=== PATIENT | female | born 1990 | race Caucasian/White ===

== ENCOUNTER 2017-07-26 04:20 | Emergency (ER) | payer BC ==
[~2017-07-26] VITALS: Ht 160 cm; Wt 50.8 kg
[2017-07-26] MEDS ORDERED: Lidocaine 2% Visc 15ml soln ORAL STA (04:42)
[2017-07-26] MEDS ORDERED: Ketorolac 60mg Inj IM ONE (04:45)
--- NOTE | 2017-07-26 04:47 | Emergency Room Report ---
History of Present Illness General Chief Complaint: Skin Rash/Abscess Source: Patient Present Illness HPI Patient presents with painful tongue. There is a part of the tongue that has a sore. She's been seen before and evaluated for possible herpes. She states the evaluation was against this. She was given topical treatments with benzocaine and an oral rinse that possibly had steroids. She was treated on July 02. There is one lesion which persists and is painful. She's having trouble eating and opening her mouth due to her tongue which is sore. There's no bleeding. Is a minimal amount of swelling and induration there. She's not been treated with antibiotics. She might have had a fever. 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 Patient's on her period now and denies possibility of . She takes BCPs. No NVD, chest pain, sore throat, cough. She is anxious about the problem. Denies SI or HI. Allergies: Coded Allergies: No Known Allergies (Unverified , 07/26/17) Patient History Past Medical History: see triage record Social History: Reports: smoking, drug use - meth Social History Narrative in rehab Last Menstrual Period: 3 weeks ago Now: No : 0 Reviewed Nursing Documentation: PMH: Agreed, PSxH: Agreed Review of Systems All Other Systems: negative except mentioned in HPI Physical Exam Vital Signs Date Time Temp Pulse Resp B/P (MAP) Pulse Ox O2 Delivery O2 Flow Rate FiO2 07/26/17 04:23 100.6 125 18 94/57 98 Room Air Sp02 EP Interpretation: reviewed, normal General Appearance: well appearing, no apparent distress Head: normocephalic, atraumatic Eyes: bilateral eye normal inspection, bilateral eye PERRL ENT: hearing grossly normal, normal pharynx, normal voice, moist mucus membranes, other - lesion - large aphtous ulcer lateral R side of tongue with minimal induration, no fluctuance or drainage - mart/beige color Neck: full range of motion, supple Respiratory: lungs clear, no respiratory distress, speaking full sentences Cardiovascular #1: normal peripheral pulses, regular rate, rhythm Gastrointestinal: normal inspection, normal bowel sounds, scaphoid Musculoskeletal: normal inspection, digits/nails normal, gait/station normal, normal range of motion Neurologic: alert, oriented x3, normal gait, grossly normal Psychiatric: anxious Skin: no rash Medical Decision Making Diagnostic Impression: Primary Impression: Tongue ulcer Additional Impression: Glossitis ER Course Patient presents with painful lesion of tongue with fever. DDx: aphthous lesion , glossitis, viral vs bacterial infection. No other source of infection. Indication for antibiotics and analgesia. Improved with treatment with decreased pain, temp and tachycardia. Tolerating PO without difficulty. Advised of need to follow up if not improving with abx. Patient stable for outpatient observation and treatment. Last Vital Signs Date Time Temp Pulse Resp B/P (MAP) Pulse Ox O2 Delivery O2 Flow Rate FiO2 07/26/17 05:56 99.4 07/26/17 05:55 114 18 102/58 98 Room Air Status: improved Disposition: HOME, SELF-CARE Condition: Improved Scripts Ibuprofen* (MOTRIN*) 600 Mg Tablet 600 MG ORAL Q6H Y for For Pain, #20 TAB Prov: Gary Metz M.D. 07/26/17 Acetaminophen (Tylenol) 325 Mg Tablet 650 MG ORAL Q6H Y for Prn Pain/Headache/Temp > 101, #20 TAB 0 Refills Prov: Gary Metz M.D. 07/26/17 Amoxicillin* (AMOXIL*) 500 Mg Capsule 500 MG ORAL THREE TIMES A DAY, #21 CAP Prov: Gary Metz M.D. 07/26/17 Lidocaine HCl 2% Viscous (Lidocaine HCl 2% Viscous) 100 Ml Solution 1 APPLIC ORAL Q4HR Y for For Pain, #30 ML Prov: Gary Metz M.D. 07/26/17 Gary Metz M.D. Jul 26, 2017 04:47
[2017-07-26] MEDS ORDERED: IBUPROFEN600 MG ORAL (05:31)
[2017-07-26] MEDS ORDERED: TYLENOL325 MG ORAL (05:31)
[2017-07-26] MEDS ORDERED: AMOXICILLIN500 MG ORAL (05:31)
[2017-07-26] MEDS ORDERED: LIDOCAINE VISC100 ML ORAL (05:31)
[2017-07-26 05:52] VITALS: BP 102/58
[2017-07-26 05:55] VITALS: BP 102/58
== END 2017-07-26 05:58 | disposition home or self-care (01) ==
LOC: EMR 04:35
DX: K14.0 Glossitis (principal)
CPT/HCPCS: 96372; 99284